=== PATIENT | female | born 1955 | race Caucasian/White ===

== ENCOUNTER 2019-10-18 13:24 | Day surgery (SDC) | payer BC ==
[~2019-10-18 13:24] MED LIST: Buffered Lidocaine 1% SYRIN* 1 ML/SYRINGE INTRADERM ONE; Famotidine IV* 10 MG/ML 2 ML (20 mg) IV ONE; Lactated Ringers 1000 ML Bag* 1,000 ML IV SCH
[2019-10-18] MEDS ORDERED: Famotidine IV* 10 MG/ML 2 ML (20 mg) ONE (13:45)
[2019-10-18] MEDS ORDERED: Propofol* 10 MG/ML 20 ML BTL ONE ×2 (15:15→17:43)
[2019-10-18] MEDS ORDERED: Ondansetron INJ* 2 MG/ML VIAL ONE (15:15)
[2019-10-18] MEDS ORDERED: Midazolam* 1 MG/ML 5 ML VIAL (5 MG) ONE (15:15)
[2019-10-18] MEDS ORDERED: fentaNYL* 50 MCG/ML 2 ML VIAL (100 MCG VIAL) ONE ×2 (15:15→17:37)
[2019-10-18] MEDS ORDERED: Lidocaine 2% PF * 5 ML VIAL ONE (15:15)
[2019-10-18] MEDS ORDERED: Dexamethasone IV* 4 MG/ML 1 ML (4 MG) ONE (15:15)
[2019-10-18] MEDS ORDERED: Triamcinolone Acetonide* 40 MG/ML 1 ML VIAL ONE ×3 (17:08→17:59)
[2019-10-18] MEDS ORDERED: Oxymetazoline 0.05% NASAL SPR* 15 ML BTL ONE (17:09)
[2019-10-18] MEDS ORDERED: Lidocaine 2% w/ EPI 1:200,000* 20 ML SDV VIAL ONE (17:09)
[2019-10-18] MEDS ORDERED: EPHEDrine (Pressors)* 50 MG/ML VIAL ONE (17:45)
[2019-10-18] MEDS ORDERED: Acetaminophen IV 1GM/100ML * 1,000 MG/100 ML VIAL IVPB ONE (18:12)
[2019-10-18] MEDS ORDERED: Ondansetron INJ* 2 MG/ML VIAL IV PRN (18:12)
[2019-10-18] MEDS ORDERED: fentaNYL* 50 MCG/ML 2 ML VIAL (100 MCG VIAL) IV PRN (18:12)
[2019-10-18] MEDS ORDERED: Naloxone* 0.4 MG/ML 1 ML VIAL IV PRN (18:12)
[2019-10-18 19:20] VITALS: BP 135/90
--- NOTE | 2019-10-19 03:22 | OP ---
DATE OF OPERATION: 10/18/19 - [facility] DATE OF : 57 SURGEON: Temo Villalpando M.D. PRE-OP DIAGNOSIS: Nasal polyposis. POST-OP DIAGNOSIS: Nasal polyposis. OPERATIVE PROCEDURE: Bilateral videoendoscopic maxillary antrostomy and removal of tissue, bilateral anterior and posterior ethmoidectomy with image guidance. BRIEF HISTORY: This is a 64-year-old female with longstanding history of nasal polyps, chronic symptoms of distant sinusitis, extensive involvement of CT and then nasal endoscopy with polypoidal changes of the mucosa. DESCRIPTION OF PROCEDURE: The patient was taken to the operating room, general anesthesia was given, patient was intubated. Nose was decongested with Afrin placed pledgets. A 0-degree telescope, 30-degree telescope, and other endoscopic sinus surgery instruments were utilized. Also image guidance was used and this was calibrated. We turned our attention to the left side, polypoidal mucosa of the uncinate region and ethmoid was resected out and then subsequently uncinate resection was carried out using microshaver. The antrostomy was then enlarged, removing polyps and hyperplastic mucosa along the antral opening. Once this was done, the ethmoidal bulla was resected out and coursing posteriorly towards the skull base and laterally towards the lamina papyracea and superiorly into the nasal- frontal duct area. Extensive anterior and posterior resection of the ethmoidal cells were carried out. The left side was then packed with Surgifoam. We turned our attention to the right side, again similarly resecting out the uncinate process, hyperplastic mucosa. Large bill bullosa was identified and this was resected out on its lateral surface preserving the structure of the middle turbinate. Next, we turned our attention to the ethmoidal bulla, resecting again posteriorly, superiorly, and laterally towards the lamina papyracea and nasal- frontal duct area. Once adequate resection was carried out using image guidance to confirm that all major cells involvement were removed, I packed that area with Surgifoam. The patient was then awakened, extubated, and sent to recovery room in stable condition. Instrument and sponge count were correct. Blood loss minimal. [id number]/[facility] #: [id number] [facility]
== END 2019-10-18 19:53 | disposition home or self-care (01) ==
LOC: OR 13:24
PROVIDERS: ATTEND Otolaryngology
DX: J32.8 Other chronic sinusitis (principal); J45.909 Unspecified asthma, uncomplicated; K21.9 Gastro-esophageal reflux disease without esophagitis; E78.00 Pure hypercholesterolemia, unspecified; L71.9 Rosacea, unspecified; E55.9 Vitamin D deficiency, unspecified
CPT/HCPCS: 88305; A9270-GY; J1100; J2250; J2405; J2704; J3010; J3301

== ENCOUNTER 2023-02-23 12:44 | Observation (INO) ==
[2023-02-23 13:28] LABS: ABS Basophils 0.1 10^3/uL (0.0-0.1); ABS Eosinophils 0.2 10^3/uL (0.0-0.5); ABS Monocytes 0.5 10^3/uL (0.0-0.9); ABS Neutrophils 4.1 10^3/uL (1.5-7.6); Eosinophil % 3.3 %; Hematocrit 39.5 % (35-45); Hemoglobin 13.7 g/dL (11.5-14.3); Lymphocyte % 17.7 %; Mean Corpuscular Hemoglobin 32.2 pg (27-33); Mean Corpuscular Hgb Conc 34.7 g/dL (31-36); Mean Corpuscular Volume 92.8 fL (80-97); Mean Platelet Volume 8.3 fL (7.5-11.2); Nucleated Red Blood Cells % 0.1 /100 WBC (0.0-0.4); Platelet Count 214 10^3/uL (150-450); Red Blood Count 4.26 10^6/uL (3.63-4.92); Red Cell Distribution Width 13.1 % (12-17); White Blood Count 5.9 10^3/uL (3.8-11.8)
[2023-02-23 14:27] LABS: Creatinine, Serum 0.69 mg/dL (0.51-0.95); Potassium 3.4 mmol/L (3.5-5.0)
[2023-02-23 14:28] LABS: Albumin 4.4 g/dL (3.2-5.2); Albumin/Globulin Ratio 1.4 (1-3); Calcium 9.4 mg/dL (8.6-10.3); Globulin 3.2 g/dL (2-4); Total Bilirubin 0.5 mg/dL (0.2-1.0); Total Protein 7.6 g/dL (6.4-8.9); eGFR CKD-EPI 95.7 (>60)
[2023-02-23 15:17] LABS: High Sensitivity Troponin 1 Hr 3 pg/mL (<15)
[2023-02-23] MEDS ORDERED: Albuterol HFA INHALER 8 gm MDI INH PRN (17:48)
[2023-02-23] MEDS ORDERED: Potassium Chlor 20 meq TAB.ER PO ONE (17:49)
[2023-02-23] MEDS ORDERED: Iohexol 350 (CONTRAST) 500 ML MDV IV ONE (18:15)
[2023-02-23] MEDS ORDERED: hydrALAZINE 20 mg/ml 1 ML Vial IV IV SLOW PU PRN (18:49)
[2023-02-23] MEDS: Mometasone/Formoter 200/5 MDI INH SCH (19:04)
[2023-02-23 19:07] LABS: Magnesium 2.3 mg/dL (1.9-2.7)
[2023-02-23 19:13] LABS: HDL Cholesterol 60.5 mg/dL
[2023-02-23] MEDS ORDERED: Beclomethasone 80 MCG MDI(NF) 80 MCG/PUFF MDI INH SCH (21:00)
[2023-02-23] MEDS ORDERED: Enoxaparin 40 MG/0.4 ML SYR SUBCUT SCH (21:00)
[2023-02-24 06:11] LABS: Calcium 9.2 mg/dL (8.6-10.3); Creatinine, Serum 0.74 mg/dL (0.51-0.95); Magnesium 2.3 mg/dL (1.9-2.7); Potassium 4.1 mmol/L (3.5-5.0); eGFR CKD-EPI 89.2 (>60)
[2023-02-24] MEDS: Mometasone/Formoter 200/5 MDI INH SCH (07:51)
[2023-02-24] MEDS ORDERED: Fluticasone NASAL SPRAY 50MCG 16 gm SPRAY BTL INTRANASAL SCH (09:00)
[2023-02-24 12:52] VITALS: BP 146/96
== END 2023-02-24 12:58 | disposition home or self-care (01) ==
LOC: EDHOLD 12:44 → ED 12:44 → EDHOLD 02-24 12:52
PROVIDERS: ADMIT Internal Medicine; ATTEND Internal Medicine